=== PATIENT | male | born 1965 | race Caucasian/White ===

== ENCOUNTER 2018-01-25 12:10 | Emergency (ER) | payer BC, OTHER ==
--- NOTE | 2018-01-25 12:51 | ED ---
Lower Extremity - HPI Summary HPI Summary: The patient is a 52 y.o male presenting to the [facility] with a chief complaint of right ankle pain. The patient states the mechanism of injury as an attempt to jump a puddle which resulted in the patients right ankle impacting the curb as the patient fell onto the ground. He is currently unable to put pressure onto the right ankle and states that he has been using crutches. He also states that he heard a "crack" during the impact. The pt reports edema at the right ankle as well. The pain is aggravated by movement and palpation. Symptoms alleviated by nothing. The patient rates the pain 10/10 in severity. - History of Current Complaint Chief Complaint: EDExtremityLower Stated Complaint: RIGHT FOOT INJURY Time Seen by Provider: 01/25/18 12:39 Hx Obtained From: Patient Mechanism Of Injury: Other - Impacting a hard surface (curb) at the right ankle while falling down onto the hard surface. Onset of Pain: Immediate Severity Currently: Severe Pain Intensity: 10 Pain Scale Used: 0-10 Numeric Timing: Constant Location: Is Discrete @ - Right ankle Associated Signs And Symptoms: Positive: Swelling Aggravating Factor(s): Standing, Ambulation, Movement, Weight Bearing, Other - Palpation Alleviating Factor(s): Nothing Able to Bear Weight: No - Allergies/Home Medications Allergies/Adverse Reactions: Allergies Allergy/AdvReac Type Severity Reaction Status Date / Time No Known Allergies Allergy Verified 01/25/18 12:15 Home Medications: Home Medications Ibuprofen TAB* [Motrin TAB* 600 MG] 600 mg PO Q6H PRN 01/25/18 [History Confirmed 01/25/18] PMH/Surg Hx/FS Hx/Imm Hx Sensory History: Denies: Hx Deafness Opthamlomology History: Denies: Hx Legally Blind EENT History: Denies: Hx Deafness Infectious Disease History: No Infectious Disease History: Denies: Traveled Outside the [place] in Last 30 Days - Family History Family History: Reviewed and Noncontributory - Social History Lives: With Family Alcohol Use: Occasionally Hx Substance Use: No Hx Tobacco Use: Yes Smoking Status (MU): Current Every Day Smoker - 1 pack a day Type: Cigarettes Cigarettes Packs Per Day: 1 Review of Systems Constitutional: Negative Eyes: Negative ENT: Negative Cardiovascular: Negative Respiratory: Negative Gastrointestinal: Negative Genitourinary: Negative Musculoskeletal: Other - Right ankle pain Positive: Edema Skin: Negative Neurological: Negative Psychological: Normal All Other Systems Reviewed And Are Negative: Yes Physical Exam - Summary Physical Exam Summary: Appearance: The patient is well-nourished in no acute distress and in no acute pain. Skin: The skin is warm and dry and skin color reflects adequate perfusion. HEENT: The head is normocephalic and atraumatic. The pupils are equal and reactive. The conjunctivae are clear and without drainage. Nares are patent and without drainage. Mouth reveals moist mucous membranes and the throat is without erythema and exudate. The external ears are intact. The ear canals are patent and without drainage. The tympanic membranes are intact. Neck: The neck is supple with full range of motion and non-tender. There are no carotid bruits. There is no neck vein distension. Respiratory: Chest is non-tender. Lungs are clear to auscultation and breath sounds are symmetrical and equal. Cardiovascular: Heart is regular rate and rhythm. There is no murmur or rub auscultated. Pulses are symmetrical and equal. Abdomen: The abdomen is soft and non-tender. There are normal bowel sounds heard in all four quadrants and there is no organomegaly palpated. Musculoskeletal: There is no back tenderness noted. There is good capillary refill. Ankle is diffusely swollen. Neurological: Patient is alert and oriented to person, place and time. The patient has symmetrical motor strength in all four extremities. Cranial nerves are grossly intact. Deep tendon reflexes are symmetrical and equal in all four extremities. Psychiatric: The patient has an appropriate affect and does not exhibit any anxiety or depression Triage Information Reviewed: Yes Vital Signs On Initial Exam: Initial Vitals Temp Pulse Resp BP Pulse Ox 97.6 F 81 16 149/93 96 01/25/18 12:13 01/25/18 12:13 01/25/18 12:13 01/25/18 12:13 01/25/18 12:13 Vital Signs Reviewed: Yes Diagnostics - Vital Signs Vital Signs Temp Pulse Resp BP Pulse Ox 01/25/18 12:13 97.6 F 81 16 149/93 96 - Laboratory Lab Statement: Any lab studies that have been ordered have been reviewed, and results considered in the medical decision making process. - Radiology Ankle X-ray Radiology Interpretation Completed By: Radiologist - Ankle X-ray reveals as per radiologist, Alvarado type B fracture pattern. Associated mild widening of the ankle mortise medially. The ED Physician has reviewed this radiology report. Lower Extremity Course/Dx - Course Course Of Treatment: Mr. Velasquez tried to jump over a puddle last Jose and hit his right ankle on a curb. He has had pain and swelling and difficulty ambulating since. On exam was ankle was swollen and tender to any attempted range of motion. Distal neurovascular motor were intact. X-ray revealed a distal fibular fracture that was mildly displaced. He was placed in a posterior splint with gutters and tolerated it well. He needs to follow up this week with orthopedics. - Diagnoses Provider Diagnoses: Closed fibular fracture Discharge - Sign-Out/Discharge Documenting (check all that apply): Patient Departure - Discharge Home - Discharge Plan Condition: Stable Disposition: HOME Prescriptions: traMADol TAB* [Ultram*] 50 mg PO Q6HR PRN #20 tab MDD 4 PRN Reason: Pain Patient Education Materials: Ankle Fracture (ED) Forms: *Work Release Referrals: Obdulio Han MD [Medical Doctor] - No Primary Care Phys,NOPCP [Primary Care Provider] - Additional Instructions: The Patient should follow up with Dr. Han in 3 days. Return to the Emergency room with new or worsening symptoms. - Billing Disposition and Condition Condition: STABLE Disposition: Home - Attestation Statements Document Initiated by Scribe: Yes Documenting Scribe: Rafael Fofana Provider For Whom Scribe is Documenting (Include Credential): Dr. Eric Dominguez Scribe Attestation: Rafael Sylvester scribed for Dr. Eric Dominguez on 01/25/18 at 2219. Scribe Documentation Reviewed: Yes Provider Attestation: The documentation as recorded by the Rafael asencio accurately reflects the service I personally performed and the decisions made by me, Dr. Eric Dominguez
[2018-01-25 13:56] VITALS: BP 165/101
== END 2018-01-25 13:56 | disposition home or self-care (01) ==
LOC: ED 12:10
DX: S82.831A Other fracture of upper and lower end of right fibula, initial encounter for closed fracture (principal); W22.8XXA Striking against or struck by other objects, initial encounter; Y93.39 Activity, other involving climbing, rappelling and jumping off; Y92.9 Unspecified place or not applicable; F17.210 Nicotine dependence, cigarettes, uncomplicated
CPT/HCPCS: 29515; 99281

== ENCOUNTER 2018-02-02 12:38 | Day surgery (SDC) | payer OTHER ==
--- NOTE | 2018-02-02 03:45 | HP ---
HISTORY AND PHYSICAL: DATE OF ADMISSION: 02/02/18 HISTORY OF PRESENT ILLNESS: Mr. Velasquez was seen in my office on 01/30/18. 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 He , a week ago, stepped on a curb and rolled his right ankle. He was seen at the [facility] and given a splint. He has been on crutches, still complaining of lateral ankle pain. He has had no previous trauma to the ankle. His radiographs today showed a displaced distal fibula fracture with a small shift in the mortise. The plan at this point will be internal fixation, right fibula, right ankle. PAST MEDICAL HISTORY: Bardly is relatively healthy except for being a smoker. He has never had any cardiac issues. Denies significant high blood pressure, high cholesterol, GI issues, no reflux, no neurological issues including dizziness or seizures, no depression or anxiety. MEDICATIONS: He takes ibuprofen. SOCIAL HISTORY: He smokes 1 pack a day and drinks 5 to 6 alcohol per week. He lives with his girlfriend, but also he is close with his father and has an ability to stay with him if needed. REVIEW OF SYSTEMS: Negative for fevers, chills, headache, chest pain, shortness of breath, abdominal distress, neurological issues, urinary issues, GI issues, depression, anxiety. PHYSICAL EXAMINATION GENERAL: Bradly is a slightly disheveled gentleman, but healthy overall. No acute distress. VITAL SIGNS: He is 5 feet 8 inches, 210 pounds. Blood pressure systolic 146. LUNGS: Clear to auscultation in all lung douglas. No wheezing or rales noted. CARDIAC: Prominent heart sounds. Regular rate. No extra sounds noted. ABDOMEN: Doughy, soft, nontender. EXTREMITIES: Exam shows him to have some mild ecchymosis at the right ankle, tenderness laterally over the distal fibula and slightly at the medial deltoid. No midfoot tenderness. He has a warm sensate foot. Skin envelope intact. DIAGNOSTIC STUDIES: Radiograph shows spiral distal fibula fracture with small shift in the mortise. PLAN: At this point will be internal fixation. This will be scheduled through the office. He will elevate over the weekend in the meantime. [id number]/[facility] #: [id number] [facility]
[2018-02-02] MEDS ORDERED: ceFAZolin 2 GM PREMIX in ORs 2 GM/50 ML BAG IVPB ONE (13:30)
[2018-02-02] MEDS ORDERED: Buffered Lidocaine 0.9% SYRIN* 5 ML/SYR SYRINGE ONE (13:31)
[2018-02-02] MEDS ORDERED: fentaNYL* 50 MCG/ML 5 ML VIAL (250 MCG VIAL) ONE (15:10)
[2018-02-02] MEDS ORDERED: KETAMINE HCL* 50 MG/ML 10 ML VIAL ONE (15:10)
[2018-02-02] MEDS ORDERED: Ondansetron INJ* 2 MG/ML VIAL ONE (15:10)
[2018-02-02] MEDS ORDERED: Ketorolac INJ* 30 MG/ML 1 ML VIAL ONE (15:10)
[2018-02-02] MEDS ORDERED: Propofol* 10 MG/ML 20 ML BTL ONE (15:10)
[2018-02-02] MEDS ORDERED: Dexamethasone IV* 4 MG/ML 1 ML (4 MG) ONE (15:10)
[2018-02-02] MEDS ORDERED: Lidocaine 2% PF * 5 ML VIAL ONE (15:10)
[2018-02-02] MEDS ORDERED: Midazolam* 1 MG/ML 5 ML VIAL (5 MG) ONE (15:11)
[2018-02-02] MEDS ORDERED: Succinylcholine* 20 MG/ML 10 ML VIAL ONE (15:52)
[2018-02-02] MEDS ORDERED: Bupivacaine 0.25% SDV PF* 10 ML VIAL INJ ONE ×2 (16:01→16:25)
[2018-02-02] MEDS ORDERED: Levalbuterol HFA INHALER* 1 PUFF MDI ONE (16:09)
[2018-02-02] MEDS ORDERED: Ondansetron INJ* 2 MG/ML VIAL IV PRN (17:01)
[2018-02-02] MEDS ORDERED: Naloxone* 0.4 MG/ML 1 ML VIAL IV PRN (17:01)
[2018-02-02] MEDS ORDERED: HYDROmorphone INJ1* 1 MG/ML SYRINGE IV PRN (17:01)
[2018-02-02] MEDS ORDERED: Levalbuterol 0.63MG/3ML NEB* UNIT OF USE INH PRN (17:01)
[2018-02-02] MEDS ORDERED: fentaNYL* 50 MCG/ML 2 ML VIAL (100 MCG VIAL) ONE (17:02)
[2018-02-02] MEDS: fentaNYL* 50 MCG/ML 2 ML VIAL (100 MCG VIAL) IV PRN ×2 (17:03→17:19)
[2018-02-02] MEDS ORDERED: traMADol TAB* 50 MG ONE (17:48)
[2018-02-02 17:50] VITALS: BP 150/68
--- NOTE | 2018-02-03 15:50 | HP ---
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 He hit and had the injury occur on 01/23/18. He was seen and diagnosed with a right ankle fracture. He is referred on here for further evaluation after being seen at [facility] Emergency Room. Bradly has isolated pain at the right lateral ankle. He has never had an ankle fracture before. The ankle by his account was normal before the injury. He has minimal pain at rest, but up to an 8 or 9 when he is trying to transfer. Bradly takes ibuprofen for pain. No other medicines by prescription. He denies blood pressures. He denies heart disease. No history of pulmonary embolism. No asthma. No hepatitis or arthritis. No GI issues. No diabetes. No seizures, epilepsy. No depression or anxiety. He does smoke at 1 pack per day for 20 years now. He also drinks 5 to 6 servings per week. Main hobbies are art collecting and music. REVIEW OF SYSTEMS: Negative for fevers, chills, headache, chest pain, shortness of breath, abdominal distress, neurological issues, urinary issues, neuropathy, depression, anxiety. PHYSICAL EXAMINATION GENERAL: Bradly is on examination a relatively healthy appearing male. VITAL SIGNS: 5 feet 8 inches, 210 pounds, systolic 146. PULMONARY: Exam is intact, clear all lung douglas. No wheezing or rales noted. CARDIAC: Exam shows prominent heart sounds, regular rate. No extra sounds noted. ABDOMEN: Doughy, soft, nontender. EXTREMITIES: Exam shows him to have warm sensate with intact skin envelope. No significant tenderness medially at the deltoid but some significant tenderness distally at the fibula, where he has a closed spiral fracture of the fibula with intact skin envelope. PLAN: The plan will be open reduction and internal fixation, right fibula. [id number]/[facility] #: [id number] [facility]
--- NOTE | 2018-02-03 16:10 | OP ---
DATE OF SURGERY: 02/02/18 - [facility] DATE OF : 67 SURGEON: Obdulio Medina MD. MANAGER ADVANCED: MARTHA Love PRE-OP DIAGNOSIS: Displaced right distal fibular fracture. POST-OP DIAGNOSIS: Displaced right distal fibular fracture. OPERATIVE PROCEDURE: Open reduction and internal fixation, right fibula. DESCRIPTION OF PROCEDURE: The patient was taken to the operating room where lateral longitudinal incision was made over the distal fibula. He was in the lateral decubitus position. We exposed the long oblique fracture, stripping the soft tissues posterior and lateral side, we were able to anatomically reduce this with a crab-claw clamp and then pinned it longitudinally with a C-wire. We were then able to fashion a 7-hole one- third recon plate to fit the back of the fibula, posterior to anterior screws were used as well as one lag screw across the fracture. Good fixation alignment was obtained. X-rays were verified intraoperatively. We then irrigated thoroughly, closing it with 2-0 Vicryl, nylon for the skin, and a plaster splint. [id number]/[facility] #: [id number] [facility]
== END 2018-02-02 18:20 | disposition home or self-care (01) ==
LOC: OR 12:38
PROVIDERS: ATTEND Orthopaedic Surgery
DX: S82.61XA Displaced fracture of lateral malleolus of right fibula, initial encounter for closed fracture (principal); X58.XXXA Exposure to other specified factors, initial encounter; Y92.9 Unspecified place or not applicable; F17.210 Nicotine dependence, cigarettes, uncomplicated
CPT/HCPCS: 76000; A9270-GY; C1713; J0330; J0690; J1100; J1885; J2250; J2405; J2704; J3010; J3490